=== PATIENT | female | born 1990 ===

== ENCOUNTER 2018-06-26 16:22 | Emergency (ER) | payer MEDICAID ==
[2018-06-26 16:28] VITALS: BMI 34.4
[2018-06-26 16:31] VITALS: BP 125/80; PULSE 105; RESP 18; TEMP 98.8; O2SAT 99
[2018-06-26 17:22] LABS: HCG,QUALITATIVE URINE NEGATIVE (NEGATIVE)
--- NOTE | 2018-06-26 17:35 | C.PDOC ---
History Of Present Illness 28 y/o female presents to the ER complaining of feeling upset/depressed for the past six months. Upon arrival the patient asked to be evaluated by crisis. She denies any suicidal or homicidal ideations at this time. Time Seen by Provider: 06/26/18 16:36 Chief Complaint (Nursing): Psychiatric Evaluation History Per: Patient History/Exam Limitations: no limitations Onset/Duration Of Symptoms: Days Current Symptoms Are (Timing): Still Present Modifying Factor(s): None Associated Symptoms: Depression Past Medical History Vital Signs: Last Vital Signs Temp 98.8 F 06/26/18 16:28 Pulse 105 H 06/26/18 16:28 Resp 18 06/26/18 17:37 BP 125/80 06/26/18 16:28 Pulse Ox 99 06/26/18 17:35 - Medical History PMH: Anxiety Other Surgeries: Miscarriage and D+C x2. cerclauge in past - [facility] Procedures IMMOBILIZ/WOUND ATTN NEC (08/10/14) Family History: States: Unknown Family Hx - Social History Hx Tobacco Use: No Hx Alcohol Use: No Hx Substance Use: No - Immunization History Hx Tetanus Toxoid Vaccination: No Hx Influenza Vaccination: No Hx Pneumococcal Vaccination: No Review Of Systems Except As Marked, All Systems Reviewed And Found Negative. Constitutional: Negative for: Fever Cardiovascular: Negative for: Chest Pain Respiratory: Negative for: Shortness of Breath Psych: Positive for: Depression. Negative for: Anxiety, Suicidal ideation, Other (Homicidal ideation) Physical Exam - Physical Exam Appears: Well, Non-toxic, No Acute Distress Skin: Normal Color, Warm, Dry Head: Atraumatic, Normacephalic Eye(s): bilateral: PERRL, EOMI Ear(s): Bilateral: Normal Oral Mucosa: Moist Neck: Normal ROM Chest: Symmetrical Cardiovascular: Rhythm Regular, No Murmur Respiratory: Normal Breath Sounds, No Rhonchi, No Wheezing Gastrointestinal/Abdominal: Bowel Sounds, Soft, No Tenderness Extremity: Bilateral: Atraumatic, Normal Color And Temperature, Normal ROM Pulses: Left Radial: Normal, Right Radial: Normal Neurological/Psych: Oriented x3, Normal Speech Gait: Steady ED Course And Treatment - Laboratory Results Urine POC: Negative O2 Sat by Pulse Oximetry: 99 (RA) Pulse Ox Interpretation: Normal Reevaluation Time: 17:35 (eloped) Reassessment Condition: Improved Medical Decision Making Medical Decision Making: Impression: 28 y/o female feeling upset/depressed for the past six months Plan: --Alcohol Serum --CMP --Drug Screen --HCG --UA --CBC seen and evaluated d/w Crisis- but pt eloped prior to eval U-preg neg no SI/HI no further action required at this time. Disposition Doctor Will See Patient In The: Office Counseled Patient/Family Regarding: Studies Performed, Diagnosis - Disposition Disposition: ELOPEMENT - ER ONLY Disposition Time: 17:34 Condition: GOOD Forms: NativeAD (Japanese) - Clinical Impression Clinical Impression: Depression - Scribe Statement The provider has reviewed the documentation as recorded by the Scribe (Alexus Oleary) Provider Attestation: All medical record entries made by the Scribe were at my direction and personally dictated by me. I have reviewed the chart and agree that the record accurately reflects my personal performance of the history, physical exam, medical decision making, and the department course for this patient. I have also personally directed, reviewed, and agree with the discharge instructions and disposition.
[2018-06-26 17:41] LABS: SQUAMOUS EPITHIAL 29 /hpf (0-5); URINE BILIRUBIN NEGATIVE (NEGATIVE); URINE BLOOD NEGATIVE (NEGATIVE); URINE CLARITY Hazy (Clear); URINE COLOR Yellow (YELLOW); URINE GLUCOSE (UA) NORMAL (Normal); URINE LEUKOCYTE ESTERASE NEG Leu/uL (Negative); URINE PROTEIN 1+ mg/dL (NEGATIVE)
[2018-06-26 18:02] LABS: BARBITURATES, UR NEGATIVE (NEGATIVE); BENZODIAZEPINES, UR NEGATIVE (NEGATIVE); OPIATES, UR NEGATIVE (NEGATIVE); PHENCYCLIDINE, UR NEGATIVE (NEGATIVE)
== END 2018-06-26 17:38 | disposition left against medical advice (07) ==
LOC: C.ER 16:22
DX: F32.9 Major depressive disorder, single episode, unspecified (principal)